=== PATIENT | male | born 1945 | race Caucasian/White ===

== ENCOUNTER 2020-11-25 17:16 | Inpatient (IN) | payer OTHER, MEDICARE, SELFPAY ==
[2020-11-25 17:17] VITALS: BP 152/85; PULSE 74; RESP 18; TEMP 36.9; O2SAT 95; BMI 25.7
--- NOTE | 2020-11-25 17:44 | CT_ITS ---
INDICATION: right flank pain EXAMINATION: CT Abdomen And Pelvis W/O Contrast Injection TECHNIQUE: Helically acquired images were obtained of the abdomen and pelvis without the use of IV contrast. A radiation dose optimization technique was used for this scan. Oral contrast: None. COMPARISON: None FINDINGS: Evaluation of the solid organs and vascular structures is limited without intravenous contrast. Visualized lung bases: Unremarkable Liver: Unremarkable Gallbladder: 1.1 cm stone seen in neck of the gallbladder. Spleen: Multiple splenic granulomas. Pancreas: Unremarkable Adrenal Glands: Unremarkable Kidneys: There is an obstructing 4 and 5 mm stone seen in the mid right ureter as well as a 1.2 cm stone at the right ureterovesical junction with associated mild right hydroureteronephrosis. There are other bilateral nonobstructing stones ranging from 2 to 4 mm. Vasculature: Unremarkable GI Tract: Scattered diverticula throughout the colon without evidence of inflammation. Lymphadenopathy: None Peritoneum: No ascites. Bladder: Unremarkable Reproductive organs: The prostate is mildly enlarged. Bones/Soft tissues: Mild scattered degenerative changes of the visualized spine. CT/Abdomen/Pelvis without Cont IMPRESSION: Obstructing 4 and 5 mm stone seen in the mid right ureter as well as a 1.2 cm stone at the right ureterovesical junction with associated mild right hydroureteronephrosis. Mild prostatomegaly. Correlate with PSA levels. Diverticulosis. Cholelithiasis. Electronically Signed: Dominic Encarnacion MD at 18:50 EDT Tel , Service support ,
[2020-11-25 17:58] LABS: Absolute Lymphocyte Count 0.54 X10^3/uL (0.83-4.51); Absolute Neutrophil Count 8.1 X10^3/uL (2.0-7.7); Basophil# 0.01 X10^3/uL; Basophil% 0.1 % (0-1); Eosinophil# 0.02 X10^3/uL; Eosinophils% 0.2 % (0-5); Hematocrit 41.7 % (40-54); Hemoglobin 14.3 g/dL (13.0-16.5); Lymphocyte # 0.54 X10^3/ul (0.83-4.51); Lymphocyte % 5.4 % (19-41); Mean Corp Hgb Conc 34.3 g/dL (32-36); Mean Corpuscular Hgb 29.9 pg (27.0-32.0); Mean Corpuscular Volume 87.2 fL (80-94); Mean Platelet Vol. 9.7 fl (6.2-12.0); Monocyte# 1.27 X10^3/uL; Monocyte% 12.6 % (0-10); NRBC Flagged by Analyzer 0 % (0-5); Neutrophil # 8.09 X10^3/uL (2.7-7.7); Neutrophil % 80.6 % (47-70); POSITIVE COUNT YES; POSITIVE DIFFERENTIAL YES; Platelet Count 129 K/mm3 (150-450); RBC Distribution Width CV 13.1 % (11.6-14.6); RBC Distribution Width SD 40.7 fl (35.1-43.9); Red Blood Count 4.78 M/mm3 (4.6-6.2)
[2020-11-25 18:00] LABS: Differential Indicated SCAN CRITERIA MET
[2020-11-25 18:13] LABS: ALB/GLOB Ratio 1.1 RATIO (0.9-2.4); AST(SGOT) 31 U/L (15-37); Alanine Aminotransfer ALT/SGPT 33 U/L (16-61); Albumin, Serum 4.1 g/dL (3.2-5.0); Alkaline Phosphatase 64 U/L (45-117); Anion Gap 6 (5-15); BUN 21 mg/dL (7-18); BUN/Creat Ratio 10.5 RATIO (10-20); Calcium,Total 8.9 mg/dL (8.5-10.1); Chloride 98 mmol/L (98-107); EST Glomerular Filtration Rate 35 mL/min (>60); Est Glom Filt Rate - Afr Amer 42 mL/min (>60); Estimated Creatinine Clearance 31.91 ml/min; Globulin 3.7 g/dL (2.2-4.2); Glucose 143 mg/dL (74-106); Lipase 93 U/L (73-393); Potassium 3.6 mmol/L (3.5-5.1); Protein, Total 7.8 g/dL (6.4-8.2); Sodium Level 135 mmol/L (136-145)
[2020-11-25 18:18] LABS: Differential Comment SCANNED
--- NOTE | 2020-11-25 18:36 | EDS_ITS ---
HPI History of Present Illness Chief Complaint: Flank Pain Informant: patient Narrative Narrative: 75-year-old male presenting with right flank pain. He states this started 2 days ago. He went to urgent care and they advised him that he had blood in his urine. He has history of previous kidney stones. He was also recently worked up for gallbladder disease. He denies nausea or vomiting. Denies fever. Denies other complaints. Prior similar symptoms: Yes Recent Illness/Hospitalization: No PFSH PFSH Medical History Kidney stones Non-smoker Home Medications sodium bicarbonate 1,300 mg PO BID 11/25/20 [History Last Taken 11/25/20] Allergy/AdvReac Type Severity Reaction Status Date / Time No Known Allergies Allergy Verified 11/25/20 17:16 Social History Smoking Status: Never smoker ROS ROS ED Constitutional Constitutional ED: Denies fever(s) Eyes Eyes: Denies change in vision ENT ENT ED: Denies rhinorrhea or sore throat Cardiovascular Cardiovascular: Denies chest pain or palpitations Respiratory/Chest Respiratory/Chest: Denies cough or dyspnea Gastrointestinal Gastrointestinal: Reports abdominal pain and nausea; Denies diarrhea or vomiting Genitourinary Genitourinary ED: Reports hematuria; Denies dysuria Musculoskeletal Musculoskeletal: Denies back pain or myalgias Integumentary Denies rash Neurologic Neurologic: Denies headache(s) Psychiatric Psychiatric: Denies suicidal thoughts EXAM Physical Exam Const Vital Signs: 11/25/20 17:17 Temperature 98.5 F Temperature Source Temporal Pulse Rate 74 Respiratory Rate 18 Blood Pressure 152/85 H Blood Pressure Mean 107 Pulse Ox 95 Oxygen Delivery Method Room Air Positive well nourished and well developed General Appearance ED: well developed HEENT Reports normocephalic and head/scalp atraumatic Eyes PERRL and EOMs intact bilaterally Neck supple General: Negative for tenderness Chest Wall inspection of chest normal Resp normal respiratory effort and clear to auscultation bilaterally Cardio regular rate and regular rhythm GI non-distended Palpation: soft and tender RUQ; Negative for guarding or rebound tenderness present no CVA tenderness Extremity normal to inspection Neuro oriented x3 Sensorium / Orientation: alert Psych mental status grossly normal Skin no rashes or lesions noted MDM MDM MDM Narrative Medical decision making narrative: Chemistries show creatinine 2.0. According to patient's My Chart results his previous creatinine was 1.1. Urinalysis unremarkable. CT flank shows obstructing 4 and 5 mm stone in the right mid ureter as well as 1.2 cm stone at the right UVJ. Discussed with Dr. Garg. Patient will be admitted. Lab Data Attestation: I reviewed the patient's lab results. Labs: Laboratory Results - last 24 hr 11/25/20 11/25/20 11/25/20 17:42 17:42 19:00 WBC 10.0 RBC 4.78 Hgb 14.3 Hct 41.7 MCV 87.2 MCH 29.9 MCHC 34.3 RDW Std Deviation 40.7 RDW Coeff of Jessica 13.1 Plt Count 129 L MPV 9.7 Immature Gran % (Auto) 1.100 H Neut % (Auto) 80.6 H Lymph % (Auto) 5.4 L [place] % (Auto) 12.6 H Eos % (Auto) 0.2 Baso % (Auto) 0.1 Absolute Neuts (auto) 8.1 H Absolute Lymphs (auto) 0.54 L Nucleated RBC % 0 Differential Comment SCANNED Sodium 135 L Potassium 3.6 Chloride 98 Carbon Dioxide 31.0 Anion Gap 6 BUN 21 H Creatinine 2.00 H Estim Creat Clear Calc 31.91 Est GFR (MDRD) Af Amer 42 L Est GFR (MDRD) Non-Af 35 L BUN/Creatinine Ratio 10.5 Glucose 143 H Calcium 8.9 Total Bilirubin 1.60 H AST 31 ALT 33 Alkaline Phosphatase 64 Total Protein 7.8 Albumin 4.1 Globulin 3.7 Albumin/Globulin Ratio 1.1 Lipase 93 Urine Color Yellow Urine Clarity Clear Urine pH 7.0 Ur Specific [place] 1.010 Urine Protein 30 H Urine Glucose (UA) Normal Urine Ketones 5 H Urine Occult Blood 150 H Urine Nitrite Negative Urine Bilirubin Negative Urine Urobilinogen Normal Ur Leukocyte Esterase Negative Urine RBC 0-5 SEEN Urine WBC 0 SEEN Ur Squamous Epith Cells 0 SEEN Urine Bacteria 0 SEEN Urine Mucus 0 SEEN Radiography Diagnostic Testing: Radiology Impression Abdomen/Pelvis CT 11/25/20 17:44 IMPRESSION: Obstructing 4 and 5 mm stone seen in the mid right ureter as well as a 1.2 cm stone at the right ureterovesical junction with associated mild right hydroureteronephrosis. Mild prostatomegaly. Correlate with PSA levels. Diverticulosis. Cholelithiasis. Electronically Signed: Dominic Encarnacion MD at 18:50 EDT Tel , Service support , Discharge Plan Triage Chief Complaint: Flank Pain ED Provider: Luh Bianchi Dx/Rx/DC Orders Clinical Impression: Urolithiasis Prescriptions: No Action sodium bicarbonate 650 mg tablet 1,300 mg PO BID RF: 0 Primary Care Provider: Prasanna Del Cid Referrals: Prasanna Del Cid MD [Primary Care Provider] - Disposition Disposition: Acute Care Hospital [facility]
[2020-11-25 19:09] LABS: Bacteria 0 SEEN /hpf (None Seen); Mucous, Urine 0 SEEN /hpf (<or=2+); Squamous Epithelial Cells - UA 0 SEEN /hpf (0-5); White Blood Cells 0 SEEN /hpf (0-5)
[2020-11-25 20:02] LABS: Color, Urine Yellow (Yellow); Glucose, Dipstick Normal (Normal); Ketone-Dipstick 5 mg/dl (Negative); Leukocyte Esterase-Dipstick Negative /ul (Negative); Nitrite-Dipstick Negative (Negative); Occult Blood-Urine 150 /ul (Negative); Protein-Dipstick 30 mg/dl (Negative); Urine Bilirubin Dipstick Negative (Negative); Urine Clarity Clear (Clear); Urine Urobilinogen Normal (Normal)
[2020-11-25 20:12] LABS: Red Blood Cells-Urine 0-5 SEEN /hpf (0-5)
[2020-11-25 22:59] VITALS: BP 140/75; PULSE 69; RESP 18; TEMP 36.9; O2SAT 95
[2020-11-25 23:15] VITALS: BP 153/81; PULSE 76; RESP 16; TEMP 37.1; O2SAT 98; BMI 25.2
[2020-11-25] MEDS: 0.9% Normal Saline 1,000 ML 150 ML IV (23:50)
[2020-11-25] MEDS: Cefazolin 1 GM/50 ML BAG IV (23:50)
[2020-11-25] MEDS: 0.9% Saline Lock 10 ML Syringe IV (23:51)
[2020-11-25] MEDS: Morphine 2 MG/ML Syringe IV (23:56)
[2020-11-26] VITALS (9 sets, daily range): BP systolic 123–171; BP diastolic 66–98; PULSE 65–85; RESP 16–18; TEMP 36.5–36.9; O2SAT 95–99; BMI 25.2; BMI 25.3
[2020-11-26] MEDS: Morphine 2 MG/ML Syringe IV (05:35)
[2020-11-26] MEDS: 0.9% Normal Saline 1,000 ML 150 ML IV (06:50)
--- NOTE | 2020-11-26 07:09 | HP.PCM_ITS ---
HPI - General General Date of Admission: 11/25/20 HPI Narrative NANDINI SOUZA, is a 75 M who presents acute renal insufficiency with 2 stones blocking the right kidney in the mid ureter has a history of uric acid stones and also has a large bladder stone. Patient was admitted for pain control plan for surgical intervention today. PFSH Medical History Kidney stones Non-smoker Home Medications sodium bicarbonate 1,300 mg PO BID 11/25/20 [History Last Taken 11/25/20] Allergy/AdvReac Type Severity Reaction Status Date / Time No Known Allergies Allergy Verified 11/25/20 17:16 Social History Smoking Status: Never smoker ROS Constitutional Constitutional: Denies chills, fever(s) or malaise Eyes Eyes: Denies blurry vision or change in vision ENT HEENT: Reports none Cardiovascular Cardiovascular: Denies chest pain or palpitations Respiratory/Chest Respiratory/Chest: Denies cough or shortness of breath with exertion Gastrointestinal Gastrointestinal: Denies abdominal pain, constipation or diarrhea Genitourinary Genitourinary: Reports systems reviewed and no addt'l complaints, except as documented Musculoskeletal Musculoskeletal: Denies back pain, joint stiffness or joint swelling Integumentary Integumentary: Denies dry skin, jaundice, lesions or rash Neurologic Neurologic: Denies confusion, syncope or weakness Psychiatric Psychiatric: Reports none; Denies anxiety or depression Endocrine Endocrinology: Denies excessive sweating, fatigue or flushing Hematologic/Lymphatic Hematologic/Lymphatic: Denies anemia, easy bleeding or easy bruising Vital Signs Vital Signs Vital Signs: 11/25/20 17:17 11/25/20 22:59 11/25/20 23:15 Temperature 98.5 F 98.5 F 98.8 F Temperature Source Temporal Temporal Oral Pulse Rate 74 69 76 Respiratory Rate 18 18 16 Respiratory Effort Respiratory Depth Respiratory Pattern Blood Pressure 152/85 H 140/75 H 153/81 H Blood Pressure Mean 107 96 105 Blood Pressure Source Monitor Blood Pressure Position Supine Blood Pressure Location Right Arm Pulse Ox 95 95 98 Oxygen Delivery Method Room Air Room Air Room Air 11/26/20 00:12 11/26/20 05:39 Temperature 98.4 F Temperature Source Oral Pulse Rate 65 Respiratory Rate 16 Respiratory Effort Normal Non-Labored Respiratory Depth Normal Respiratory Pattern Normal Blood Pressure 152/66 H Blood Pressure Mean 94 Blood Pressure Source Monitor Blood Pressure Position Semi-Fowlers Blood Pressure Location Right Arm Pulse Ox 97 Oxygen Delivery Method Room Air Room Air Weight Weight: 77.678 kg Body Mass Index (BMI) 25.2 Physical Exam Const alert and oriented x3 General Appearance: cooperative HEENT normocephalic, head/scalp atraumatic, EAC's normal and TM's normal bilaterally Eyes PERRL and EOMs intact bilaterally Pupil: sluggish Neck no lymphadenopathy, supple and no JVD General: trachea midline Lymph Lymphatic: no lymphadenopathy noted, lymphedema and lymphadenopathy Resp normal respiratory effort, normal air movement and clear to auscultation bilaterally Cardio regular rate, regular rhythm and peripheral pulses 2+ throughout GI soft to palpation, non-tender and non-distended Extremity normal capillary refill and no clubbing, cyanosis or edema General Extremity: no tenderness to palpation of joints or extremities Skin no rashes or lesions noted General Skin Exam: turgor normal Lesions: no lesions Rashes: no rashes Neuro CN's II-XII intact bilaterally Speech: speech normal Motor Exam: strength 5/5 throughout; Negative for general weakness Psych thought process normal, cooperative and affect normal Appearance: appropriate Results Lab / Micro Data Result Diagrams: 11/25/20 17:42 11/25/20 17:42 Labs: Laboratory Results - last 24 hr 11/25/20 17:42: WBC 10.0, RBC 4.78, Hgb 14.3, Hct 41.7, MCV 87.2, MCH 29.9, MCHC 34.3, RDW Std Deviation 40.7, RDW Coeff of Jessica 13.1, Plt Count 129 L, MPV 9.7, Immature Gran % (Auto) 1.100 H, Neut % (Auto) 80.6 H, Lymph % (Auto) 5.4 L, Elliott % (Auto) 12.6 H, Eos % (Auto) 0.2, Baso % (Auto) 0.1, Absolute Neuts (auto) 8.1 H, Absolute Lymphs (auto) 0.54 L, Nucleated RBC % 0, Differential Comment SCANNED 11/25/20 17:42: Sodium 135 L, Potassium 3.6, Chloride 98, Carbon Dioxide 31.0, Anion Gap 6, BUN 21 H, Creatinine 2.00 H, Estim Creat Clear Calc 31.91, Est GFR (MDRD) Af Amer 42 L, Est GFR (MDRD) Non-Af 35 L, BUN/Creatinine Ratio 10.5, Glucose 143 H, Calcium 8.9, Total Bilirubin 1.60 H, AST 31, ALT 33, Alkaline Phosphatase 64, Total Protein 7.8, Albumin 4.1, Globulin 3.7, Albumin/Globulin Ratio 1.1, Lipase 93 11/25/20 19:00: Urine Color Yellow, Urine Clarity Clear, Urine pH 7.0, Ur Specific [place] 1.010, Urine Protein 30 H, Urine Glucose (UA) Normal, Urine Ketones 5 H, Urine Occult Blood 150 H, Urine Nitrite Negative, Urine Bilirubin Negative, Urine Urobilinogen Normal, Ur Leukocyte Esterase Negative, Urine RBC 0-5 SEEN, Urine WBC 0 SEEN, Ur Squamous Epith Cells 0 SEEN, Urine Bacteria 0 SEEN, Urine Mucus 0 SEEN Radiology Impression Abdomen/Pelvis CT 11/25/20 17:44 IMPRESSION: Obstructing 4 and 5 mm stone seen in the mid right ureter as well as a 1.2 cm stone at the right ureterovesical junction with associated mild right hydroureteronephrosis. Mild prostatomegaly. Correlate with PSA levels. Diverticulosis. Cholelithiasis. Electronically Signed: Dominic Encarnacion MD at 18:50 EDT Tel , Service support , Assessment & Plan Assessment/Plan (1) Urolithiasis: PLAN: Plan to proceed today with cystoscopy laser bladder stone and right stent placement.
--- NOTE | 2020-11-26 08:52 | EKG12_ITS ---
Test Reason : PRE OP Blood Pressure : / mmHG Vent. Rate : 067 BPM Atrial Rate : 067 BPM P-R Int : 148 ms QRS Dur : 100 ms QT Int : 424 ms P-R-T Axes : 059 024 050 degrees QTc Int : 448 ms Normal sinus rhythm Normal ECG No previous ECGs available Confirmed by JILLIAN THOMPSON, BEBETO ([id number]), magazine editor RAIMUNDO HAMILTON ([id number]) on 12/02/2020 9:47:34 AM Referred By: VEL Confirmed By:BEBETO WALSH MD
--- NOTE | 2020-11-26 09:17 | CASEMGMT ---
Social Work Note Per program architect questions, pt has completed HCPOA and LW, haven't provided copy to [facility] and pt unable to bring in copies. Katy Gan CLOTH TRIMMER HAND, TUBE PULLER
[2020-11-26] MEDS: Cefazolin 1 GM/50 ML BAG IV (11:00)
[2020-11-26] MEDS: Lubricating Jelly 60 GM Tube 30 GM TOPICAL (11:10)
--- NOTE | 2020-11-26 11:15 | PCM.DC ---
Discharge Instructions Diet Discharge Diet: No restrictions Activity Discharge Activity: Return to Normal Activity and May Not Drive (while taking narcotic pain medications.) Dressing / Incision Call your doctor if you observe: Fever of 101 or Higher Follow Up Care Please Follow Up With: Popeye Garg MD When: Call [phone] for an appointment Test Results: Test results from this visit will be discussed in further detail at your follow-up appointment, if applicable. Discharge Plan Admission Admit Date/Time: 11/25/20 23:25 Primary Reason for Your Visit: LASER BLADDER STONE AND STENT PLACEMENT FOR KIDNEY STONES ON RIGHT Attending Provider: Popeye Garg Primary Care Provider: Prasanna Del Cid Discharge Orders/Prescriptions Prescriptions: New oxycodone-acetaminophen 5-300 mg tablet 1 tab PO Q6H PRN (Reason: pain) 7 Days Qty: 14 RF: 0 ciprofloxacin HCl 500 mg tablet 500 mg PO BID Qty: 6 RF: 0 Continued sodium bicarbonate 650 mg tablet 1,300 mg PO BID RF: 0 Referrals / Follow Up: Popeye Garg MD [STAFF PHYSICIAN] - Prasanna Del Cid MD [Primary Care Provider] -
--- NOTE | 2020-11-26 11:16 | OP.PCM_ITS ---
Problems Associated Problem List Diagnoses (1) Bladder stone: (2) Urolithiasis: Report of Operation Date of Procedure: 11/26/20 Pre-Operative Diagnosis: Bladder stone and obstruction of the right kidney with kidney stones Post-Operative Diagnosis: Same Surgery/Procedure Performed:: Cystoscopy and laser cystolitholapaxy of bladder stones, cystoscopy and right retrograde pyelogram, interpretation fluoroscopic images and right stent placement Description of Surgical Findings:: Patient was taken back to the operating room, he was brought into the hospital because of severe pain and blockage of the right kidney with high-grade obstruction of the kidney with kidney stones he also had acute renal insufficiency with elevated creatinine CAT scan was reviewed he has had a 2.5 cm stone in the bladder and today we plan to proceed with laser of his bladder stone and also organ to place a stent on the right side for the obstruction and will plan for laser of the stone in the in the ur eter at a separate setting at this point we do want to get his kidney function improved and remove the bladder stone. Patient was taken back to the operating room at the smooth induction of general anesthesia he was placed in dorsolithotomy position, I went into the bladder with a 21 Albanian rigid cystourethroscope, the urethra was normal the prostate was normal but he did have a very large prostate with a high riding median lobe and obstruction once I was able to get over this then inside the bladder had a heavily trabeculated bladder and then there was a stone in the base of the bladder, I then used 1000 ?m laser fiber and the 2.5 cm stone was laser little tiny pieces and all the pieces was then flushed out of the bladder. I then cannulated the right ureteral orifice with a Pollick catheter performed a retrograde pyelogram we can see contrast going up and then he can see obstruction in the distal ureter about mid this distal ureter over the pelvis where the stones are causing blockage was able to get the wire past the stones without any problems and then was once the wire was up into the kidney then I advanced the Pollack catheter further [place] performed a retrograde pyelogram up into the kidney and then left the wire in place and then over the wire a place a stent was a 6 Albanian by 26 cm stent once a stent was in good position pulled the wire the stent coiled in the kidney bladder good position. Plan will be to have the patient go home discharge today with pain medicine antibiotics and I have my office call him to get him set up for surgery to go up and laser the remaining fragments of stones in the ureter. Surgeon: Forest Type of Anesthesia: General Drains: stent right Admit VTE Documentation VTE Present on Admission: No VTE Mechan Device Prophylaxis: SCD's
--- NOTE | 2020-11-26 13:37 | CASEMGMT ---
RENAE GEORGES Assessment: Face to Face with pt for initial transition planning/care coordination assessment. RN JOSÉ MANUEL introduced self and role at [facility], pt voices understanding and consents to assessment. Pt is A/O x4 and answers all questions appropriately at this time. Pt sitting up in bed with at bedside. Care providers, pharmacy, and demographics verified/updated. Admitting Dx: kidney stone PCP: [facility] Specialists: Pt denies having any specialists before seeing . [facility]erred [facility]: [facility] Insurance: [facility] Prescription Benefit: yes LW/HPOA: Pt states he has a LW/DPOA and his DPOA is his Weston Abarca. He is aware that it is not on file and may bring in to scan into the chart. LNOK: Weston Abarca, Living Arrangements: Pt lives with in a two story house that is w/c accessible. Pt is I in ADL's and denies concerns at home. Transportation: Pt drives self and denies concerns with transportation. DME/HHC/SNF: Pt has a cane and walker at home but he does not use. Pt denies previous HHC or SNF stays. Pt states no concerns with going home at time of dc. Pt works as needed for [employer]. Pt states no further concerns/needs. CM to follow. Advised pt to ask CM if any further question/concerns/needs arise, voices understanding. Pt Goal: Home Plan: Home
--- NOTE | 2020-11-26 14:41 | PHA.DC.MC ---
Pharmacy Service has performed discharge medication reconciliation and counseling for this patient. 1. CIPROFLOXACIN 500MG PO BID X 3 DAYS 2. OXYCODONE/ACETAMINOPHEN 5/325MG 1T PO Q6H PRN PAIN The patient's discharge medication list was reviewed for discrepancies and discrepancies were resolved. Home Medications sodium bicarbonate 1,300 mg PO BID 11/25/20 ciprofloxacin HCl 500 mg PO BID #6 tab 11/26/20 oxycodone-acetaminophen 1 tab PO Q6H PRN 7 Days #14 tab 11/26/20 The patient was counseled on the following discharge medications and changes in medications for homegoing were reviewed. The Reason for Use, instructions for use, and potential side effects were reviewed for all new medications. The patient's questions regarding all of their medications were answered. The patient was able to verbally demonstrate an understanding of their discharge medications.
== END 2020-11-26 15:45 | disposition home or self-care (01) | DRG 660 ==
LOC: ED 21:18 → MS3 11-26 00:08
PROVIDERS: Admitting Provider Urology; Emergency Provider Emergency Medicine; PCP Internal Medicine; Visit Provider Urology
PROC: 0TJ98ZZ Inspection of Ureter, Via Natural or Artificial Opening Endoscopic (ICD-10-PCS; CPT 52352; principal; 2020-11-26 16:55)
DX: N13.2 Hydronephrosis with renal and ureteral calculous obstruction (principal); N40.1 Benign prostatic hyperplasia with lower urinary tract symptoms; N13.8 Other obstructive and reflux uropathy; N28.9 Disorder of kidney and ureter, unspecified; N21.0 Calculus in bladder; N32.89 Other specified disorders of bladder; Z87.442 Personal history of urinary calculi
CPT/HCPCS: 74176; 76000; 80053; 81001; 83690; 85025; 93005; 99285; J7030; A4216; C1769; C2617; J2405

== ENCOUNTER → 2020-12-26 | Outpatient (CLI) | payer OTHER, SELFPAY ==
--- NOTE | 2020-12-26 11:20 | CALC_PTH ---
PATIENT: NANDINI SOUZA LOC: [facility] U#:[id number] AGE/SX: 75/M ROOM: RE12/26/[address]: Dr. Popeye Garg MD : [id number] BED: DIS: 12/26/2020 SPEC #: [id number] RECD: 12/26/20 14:41 STATUS: KRISTEN REJennifer #: [id number] GARCIA: 12/26/20 11:[address]: Popeye Garg DEPT: SURGICAL PATHOLOGY RECD BY: Jenna Sanchez ENTERED: 12/29/20 12:41 SP TYPE: Calculi OTHR DR: Dr. Prasanna Del Cid MD [facility] Tissues: CALCULI Procedures: Surgery Specimen Level I HEADER OPERATION: Right ureteroscopy, laser stone, stent PRE-OP DIAGNOSIS: Right ureteral calculi TISSUE SUBMITTED: Right ureteral calculi GROSS DIAGNOSIS A fragment of stone, clinically right ureteral calculus. SJ:anne 12/29/20 COMMENT If chemical analysis is requested on this specimen, please notify the laboratory. GROSS DESCRIPTION Received without fixative labeled with the patient's name and designated right ureteral calculi. The specimen consists of a fragment of penaloza-brown stone measuring 0.4 x 0.3 x 0.1 cm. The specimen is saved for stone analysis, if needed. / SJ:anne 12/29/20 CPT: 21809
== END | disposition home or self-care (01) ==
LOC: LABSPEC 14:50
PROVIDERS: PCP Internal Medicine; Visit Provider Urology
DX: N20.1 Calculus of ureter (principal)
CPT/HCPCS: 88300

== ENCOUNTER → 2022-07-01 | Outpatient (CLI) | payer OTHER, SELFPAY ==
[2022-07-01 13:09] LABS: PSA,Total - Annual Screen 5.92 ng/mL (0.00-4.00)
== END | disposition home or self-care (01) ==
LOC: LAB 12:11
PROVIDERS: PCP Internal Medicine; Visit Provider Urology
DX: Z12.5 Encounter for screening for malignant neoplasm of prostate (principal)
CPT/HCPCS: 36415; 84153; G0103

== ENCOUNTER → 2023-07-05 | Outpatient (CLI) | payer OTHER, SELFPAY ==
[2023-07-05 13:33] LABS: PSA,Total- Diagnostic 5.53 ng/mL (0.0-4.0)
== END | disposition home or self-care (01) ==
LOC: LAB 11:34
PROVIDERS: PCP Internal Medicine; Referring Provider Urology; Visit Provider Urology
DX: R97.20 Elevated prostate specific antigen [PSA] (principal)
CPT/HCPCS: 36415; 84153